=== PATIENT | male | born 1950 | race Caucasian/White ===

== ENCOUNTER 2018-10-30 14:15 | Emergency (ER) | payer OTHER ==
[~2018-10-30] VITALS: Ht 175.3 cm; Wt 86.5 kg
[2018-10-30 15:42] VITALS: Ht 175.3 cm; Wt 86.5 kg
[2018-10-30] MEDS ORDERED: HYDROmorphONE 2 MG/ML SYG IM STA (19:05)
[2018-10-30] MEDS ORDERED: KETOROLAC 30 MG INJ IM STA (19:05)
[2018-10-30] MEDS ORDERED: ONDANSETRON (ODT) 4 MG TAB ODT STA (19:05)
[2018-10-30] MEDS ORDERED: ASPI-817 PO (20:12)
[2018-10-30] MEDS ORDERED: NALO4SPR NS (20:19)
[2018-10-30] MEDS ORDERED: IBUP-1542 PO (20:19)
[2018-10-30] MEDS ORDERED: TAMS-14 PO (20:19)
[2018-10-30] MEDS ORDERED: HYDR-3980 PO (20:19)
[2018-10-30 20:25] VITALS: BP 144/67; PULSE 59; RESP 16
--- NOTE | 2018-10-30 21:37 | ERD ---
ER Documentation Chief Complaint Chief Complaint RIGHT FLANK PAIN, DENIES DYSURIA, HX OF KIDNEY STONES HPI Patient is a 68-year-old male with hypertension and kidney stones who presents with "kidney stone pain". He said that he has right-sided flank pain that started this morning. It feels like his previous kidney stones and he does not want a CT scan again. He tried aspirin. He has no fevers. He has no urinary symptoms. Upon review of old medical records this is the patient's first visit to the emergency department. He is visiting from [facility] [place] and said that where his primary doctor is. ROS All systems reviewed and are negative except as per history of present illness. Medications Home Meds Active Scripts Tamsulosin Hcl* (Flomax*) 0.4 Mg Cap.er.24h, 0.4 MG PO QPM, #30 CAP Prov:SHAHRZAD BABCOCK MD 10/30/18 Naloxone HCl nasal spray (Narcan 4 mg/0.1 mL nasal) 4 Mg [place], 4 MG NS .Q2-3MIN for OPIOID OVERDOSE, #2 SPRAY 0 Refills [place] 0.1 mL into one nostril. Repeat with second device into other nostril after 2-3 minutes if no or minimal response Prov:SHAHRZAD BABCOCK MD 10/30/18 Hydrocodone/Acetaminophen ([place] 10-325 Tablet) 1 Each Tablet, 1 TAB PO Q6H PRN for PAIN, #12 TAB Prov:SHAHRZAD BABCOCK MD 10/30/18 Ibuprofen* (Motrin*) 600 Mg Tab, 600 MG PO Q6H PRN for PAIN AND OR ELEVATED TEMP, #30 TAB Prov:SHAHRZAD BABCOCK MD 10/30/18 Reported Medications Aspirin* (Aspirin* EC) 81 Mg Tablet.dr, 81 MG PO DAILY, TAB 10/30/18 Allergies Allergies: Coded Allergies: No Known Allergy (Unverified , 10/30/18) PMhx/Soc History of Surgery: Yes (QUADRUPLE BY-PASS 2011) Hx Cardiac Disorders: Yes (HTN) Hx Miscellaneous Medical Probl: Yes (KIDNEY STONES) Hx Alcohol Use: Yes (ocassionally) Hx Substance Use: No Hx Tobacco Use: No Smoking Status: Former smoker FmHx Family History: diabetes Physical Exam Vitals Vital Signs Date Temp Pulse Resp B/P (MAP) Pulse Ox O2 O2 Flow FiO2 Time Delivery Rate 10/30/18 97.7 59 16 144/67 96 Room Air 20:25 (92) 10/30/18 72 18 157/105 100 Room Air 19:06 (122) 10/30/18 98.3 73 18 181/78 99 15:42 (112) Physical Exam Const: Moderate distress secondary to pain Head: Atraumatic Eyes: Normal Conjunctiva ENT: Normal External Ears, Nose and Mouth. Neck: Full range of motion. No meningismus. Resp: Clear to auscultation bilaterally Cardio: Regular rate and rhythm, no murmurs Abd: Soft, non tender, non distended. Normal bowel sounds Skin: No petechiae or rashes Back: No midline or flank tenderness Ext: No cyanosis, or edema Neur: Awake and alert Psych: Normal Mood and Affect Results 24 hrs Laboratory Tests Test 10/30/18 20:17 Bedside Urine pH (LAB) 5.5 Bedside Urine Protein (LAB) Trace Bedside Urine Glucose (UA) 0.50% Bedside Urine Ketones (LAB) 1+ Bedside Urine Blood 2+ Bedside Urine Nitrite (LAB) Negative Bedside Urine Leukocyte Esterase (L Negative Current Medications Medications Dose Sig/[place] Start Time Status Last (Trade) Ordered Route PRN Stop Time Admin Dose Reason Admin Ketorolac 30 mg ONCE STAT 10/30/18 DC 10/30/18 Tromethamine IM 19:05 19:25 (Toradol) 10/30/18 19:06 2 mg ONCE STAT 10/30/18 DC 10/30/18 Hydromorphone IM 19:05 19:25 HCl 10/30/18 19:06 (Dilaudid) Ondansetron 4 mg ONCE STAT 10/30/18 DC 10/30/18 HCl (Zofran ODT 19:05 19:24 Odt) 10/30/18 19:06 Procedures/MDM Urine dip is negative for infection. Patient is a 68-year-old male who presents with acute kidney stone pain. There is no sign of infection. The patient is otherwise well-appearing after treatment with pain medications. He will be discharged. I do not believe he requires further workup or admission to the hospital at this time. He will be given information for Dr. Presley while he is visiting here. He can return for any worsening symptoms. I doubt appendicitis, cholecystitis, pancreatitis, or bowel obstruction. I doubt pyelonephritis. Departure Diagnosis: Primary Impression: Kidney stone Additional Impression: Flank pain Condition: Fair Patient Instructions: Kidney Stone W/ Colic Referrals: MICHAEL PRESLEY MD Additional Instructions: SPECIALIST: YOU HAVE A MEDICAL CONDITION WHICH REQUIRES YOU TO SEE A SPECIALIST WITHIN THE NEXT 1-2 DAYS. PLEASE FOLLOW UP WITH YOUR PRIMARY PHYSICIAN FOR REFFERAL.IF YOU DO NOT HAVE A PRIMARY CARE PHYSICIAN AND/OR YOU CAN NOT AFFORD TO SEE A PHYSICIAN THE FOLLOWING RESOURCES HAVE BEEN SUPPLIED TO YOU. IT IS YOUR RESPONSIBILITY TO BE SEEN BY THE SPECIALIST SHAHRZAD BABCOCK MD Oct 30, 2018 21:37
== END 2018-10-30 20:33 | disposition home or self-care (01) ==
LOC: E/R 14:15
DX: N20.0 Calculus of kidney (principal); I10 Essential (primary) hypertension; Z79.82 Long term (current) use of aspirin; Z87.891 Personal history of nicotine dependence
CPT/HCPCS: 81003; 96372; 99284; J1170; J1885